=== PATIENT | female | born 1995 | race African-American/Black ===

== ENCOUNTER 2018-01-02 19:48 | Emergency (ER) | payer OTHER ==
[~2018-01-02] VITALS: Ht 162.6 cm; Wt 61.2 kg
[2018-01-02 21:03] LABS: Eosinophils # (auto) 0.3 uL; Eosinophils % (auto) 6.3 % (0.0-7.0); Lymphocytes # (auto) 2.1 uL; Mean Corpuscular Hemoglobin 16.1 pg (28.0-32.0); Monocytes # (auto) 0.4 uL; Nucleated Red Blood Cells % 0.5 %; White Blood Cell 4.9 10^3/uL (4.4-10.8)
[2018-01-02 21:05] LABS: Basophils # (auto) 0.1 uL; Basophils % (auto) 1.3 % (0.0-2.0); Hematocrit 21.5 % (36.0-46.0); Mean Corpuscular Hgb Conc. 27.6 g/dL (32.0-36.0); Mean Corpuscular Volume 58.3 fL (80.0-100.0); Monocytes % (auto) 8.2 % (0.0-12.0); Neutrophils % (auto) 41.2 % (37.0-80.0); Platelet Count (auto) 327 10^3/uL (140-450); Red Blood Cells 3.68 10^6/uL (4.0-5.20)
[2018-01-02 21:06] LABS: Red Cell Distribution Width 21.9 % (11.8-14.3)
[2018-01-02 21:08] LABS: Hemoglobin 5.9 g/dL (12.2-16.2)
[2018-01-02 21:13] LABS: BUN/Creatinine Ratio 17.9; Bilirubin, Total 0.3 mg/dL (0.2-1.0); Calcium 8.5 mg/dL (8.5-10.1); Potassium 3.7 mmol/L (3.5-5.1); Total Protein 7.8 g/dL (6.4-8.2)
[2018-01-03] VITALS (19 sets, daily range): BP systolic 75–128; BP diastolic 33–75
[2018-01-03] MEDS ORDERED: diphenhdrAMINE HCL 25 MG CAP PO ONE (04:45)
[2018-01-03] MEDS ORDERED: diphenhdrAMINE HCL 50 MG/1 ML VL IV ONE (05:30)
[2018-01-03] MEDS ORDERED: HYDROcodone-ACET 5/325MG TAB PO ONE (05:45)
== END 2018-01-03 09:15 | disposition home or self-care (01) ==
LOC: ER 19:48 → EDBD 19:48 → ER 01-03 09:15
DX: D64.9 Anemia, unspecified (principal); Z86.2 Personal history of diseases of the blood and blood-forming organs and certain disorders involving the immune mechanism
CPT/HCPCS: 36415; 36430; 80053; 85025; 86850; 86900; 86901; 86920; 94761; 96374; 99285; J1200; J7030; P9016

== ENCOUNTER 2021-05-13 12:09 | Emergency (ER) | payer SELFPAY ==
[~2021-05-13] VITALS: Ht 162.6 cm; Wt 59.4 kg
[2021-05-13 13:00] VITALS: BP 118/78
[2021-05-13 14:31] LABS: Urine Bacteria NONE SEEN /hpf (None Seen); Urine Blood Negative /uL (Negative); Urine Specific Gravity 1.025 (1.001-1.035); Urine WBC 2 /hpf (0 - 5)
== END 2021-05-13 15:01 | disposition home or self-care (01) ==
LOC: ER 12:09
DX: R53.83 Other fatigue (principal); Z32.02 Encounter for pregnancy test, result negative
CPT/HCPCS: 81001; 81025

== ENCOUNTER 2021-05-18 21:05 | Emergency (ER) | payer MEDICAID, OTHER ==
[~2021-05-18] VITALS: Ht 162.6 cm; Wt 54.0 kg
[2021-05-18 21:45] VITALS: BP 111/74
[2021-05-19] MEDS ORDERED: KETOROLAC TROMETH 60MG/2ML VIAL IM ONE
== END 2021-05-19 03:51 | disposition home or self-care (01) ==
LOC: ER 21:06
DX: S93.402A Sprain of unspecified ligament of left ankle, initial encounter (principal); W18.39XA Other fall on same level, initial encounter; Y93.44 Activity, trampolining; Y92.89 Other specified places as the place of occurrence of the external cause; Y99.8 Other external cause status
CPT/HCPCS: 29515; 73610; 96372; 99283; J1885